=== PATIENT | male | born 1935 | race Caucasian/White ===

== ENCOUNTER 2017-09-27 19:15 | Emergency (ER) | payer MEDICARE, OTHER ==
[2017-09-27 19:38] LABS: #Basophils 0.1 thou/uL (0.0-0.2); #Eosinphils 0.1 thou/uL (0.0-0.7); #Lymphocytes 1.9 thou/uL (1.20-3.40); #Monocytes 0.6 thou/uL (0.11-0.59); #Neutrophils 4.3 thou/uL (1.40-6.50); %Basophils 1.2 % (0.0-1.0); %Eosinophils 1.1 % (0.0-10.0); %Lymphocytes 27.3 % (21.0-51.0); %Monocytes 8.7 % (0.0-10.0); %Neutrophils 61.7 % (42.0-75.0); Hemoglobin 17.5 g/dL (14.0-18.0); Mean Corpuscular HGB CONC 34.5 g/dL (32.0-36.0); Mean Corpuscular Hemoglobin 30.5 pg (27.0-31.0); Mean Corpuscular Volume 88.6 fl (80.0-94.0); Platelet Count 163 thou/uL (130-400); RBC Distribution Width 14.7 % (11.5-14.5); Red Blood Cell (RBC) Count 5.73 mill/uL (4.70-6.10)
[2017-09-27 19:55] LABS: ALT (SGPT) 23 U/L (8-55); AST (SGOT) 27 U/L (5-34); Albumin 4.1 g/dL (3.4-4.8); Alkaline Phosphatase 138 U/L (40-150); Anion Gap 19 mmol/L (10-20); BUN (Urea Nitrogen) 9 mg/dL (8.4-25.7); Bilirubin, Total 2.6 mg/dL (0.2-1.2); Calc. Creatinine Clearance 0 mL/min (70-130); Calcium 9.8 mg/dL (7.8-10.44); Carbon Dioxide 24 mmol/L (23-31); Chloride 103 mmol/L (98-107); Estimated GFR-MDRD 63; Globulin 3.4 g/dL (2.4-3.5); Glucose 193 mg/dL (83-110); Potassium 3.5 mmol/L (3.5-5.1); Protein, Total 7.5 g/dL (5.8-8.1); Sodium 142 mmol/L (136-145)
[2017-09-27 19:58] LABS: CKMB 3.3 ng/mL (0-6.6); Troponin I 0.085 ng/mL (< 0.028)
[2017-09-27] MEDS ORDERED: Furosemide 40 MG/4 ML VIAL ONE (20:03)
[2017-09-27] MEDS ORDERED: Nitroglycerin 2% Ointment 1 INCH/1 GM Packet ONE (20:03)
--- NOTE | 2017-09-27 20:28 | RAD ---
PORTABLE CHEST: 09/27/2017 COMPARISON: None. FINDINGS: The heart is mildly enlarged. There are no congestive changes or large pleural effusions. Faint joie cification is seen in the aortic arch. The trachea is midline. There is no lobar consolidation; however, there is some mild prominence of some of the basilar lung m arkings, right more than left. This may or may not be significant. IMPRESSION: Cardiomegaly and arteriosclerosis without congestive change. POS: HOME
[2017-09-27] MEDS ORDERED: Metoprolol Tartrate 5 MG/5 ML VIAL ONE (20:43)
[2017-09-27 21:07] LABS: Clarity Clear (Clear); Specific Gravity, Urine 1.015 (1.005-1.030)
[2017-09-27 21:08] LABS: Bilirubin Negative (Negative); Blood, Urine Negative (Negative); Glucose, Urine (Dipstick) Negative (Negative); Leukocyte Negative (Negative); Nitrite Negative (Negative); Protein, Urine (Dipstick) Negative (Neg-Trace)
== END 2017-09-27 21:17 | disposition home or self-care (01) ==
LOC: BURERS 19:15
DX: S29.011A Strain of muscle and tendon of front wall of thorax, initial encounter (principal); R79.89 Other specified abnormal findings of blood chemistry; I50.9 Heart failure, unspecified; E11.9 Type 2 diabetes mellitus without complications; J44.9 Chronic obstructive pulmonary disease, unspecified; X58.XXXA Exposure to other specified factors, initial encounter
CPT/HCPCS: 71045; 80053; 81003; 82553; 83605; 83880; 84484; 85025; 87040; 87086; 93005; 94760; 96374; 96375; J1940

== ENCOUNTER 2018-04-25 14:49 | Emergency (ER) | payer MEDICARE ==
[2018-04-25 15:44] LABS: #Basophils 0.2 thou/uL (0.0-0.2); #Eosinphils 0.8 thou/uL (0.0-0.7); #Lymphocytes 1.8 thou/uL (1.20-3.40); #Monocytes 1.3 thou/uL (0.11-0.59); #Neutrophils 9.4 thou/uL (1.40-6.50); %Basophils 1.1 % (0.0-1.0); %Eosinophils 6.1 % (0.0-10.0); %Lymphocytes 13.1 % (21.0-51.0); %Monocytes 9.8 % (0.0-10.0); Hemoglobin 13.8 g/dL (14.0-18.0); Mean Corpuscular HGB CONC 37.3 g/dL (32.0-36.0); Mean Corpuscular Hemoglobin 35.1 pg (27.0-31.0); Mean Corpuscular Volume 94.1 fL (78.0-98.0); Mean Platelet Volume 10.3 fL (7.4-10.4); Platelet Count 234 thou/uL (130-400); Prothrombin Time 13.1 SEC (12.0-14.7); RBC Distribution Width 11.5 % (11.5-14.5); Red Blood Cell (RBC) Count 3.95 mill/uL (4.70-6.10); White Blood Cell (WBC) Count 13.4 thou/uL (4.8-10.8)
[2018-04-25 15:45] LABS: PTT 28.4 SEC (22.9-36.1)
[2018-04-25 15:53] LABS: ALT (SGPT) 49 U/L (8-55); AST (SGOT) 47 U/L (5-34); Albumin 3.9 g/dL (3.4-4.8); Alkaline Phosphatase 89 U/L (40-150); Anion Gap 16 mmol/L (10-20); BUN (Urea Nitrogen) 47 mg/dL (8.4-25.7); Bilirubin, Total 0.6 mg/dL (0.2-1.2); CK (CPK) 1058 U/L (30-200); Calc. Creatinine Clearance 0 mL/min (70-130); Calcium 9.9 mg/dL (7.8-10.44); Carbon Dioxide 25 mmol/L (23-31); Chloride 98 mmol/L (98-107); Estimated GFR-MDRD 28; Globulin 3.3 g/dL (2.4-3.5); Glucose 186 mg/dL (83-110); MDiff Complete? YES; Manual Diff?? YES; Potassium 5.3 mmol/L (3.5-5.1); Protein, Total 7.2 g/dL (5.8-8.1); Sodium 134 mmol/L (136-145)
[2018-04-25 16:41] LABS: CKMB 19.1 ng/mL (0-6.6)
[2018-04-25 16:50] LABS: Bilirubin Negative (Negative); Blood, Urine Negative (Negative); Clarity Clear (Clear); Glucose, Urine (Dipstick) Negative (Negative); Leukocyte Negative (Negative); Nitrite Negative (Negative); Protein, Urine (Dipstick) Negative (Neg-Trace); Urobilinogen 0.2 mg/dL (0.2-1.0)
[2018-04-25] MEDS ORDERED: Enoxaparin Sodium 100 MG/ML SYRINGE ONE (17:44)
--- NOTE | 2018-04-25 19:42 | CT ---
CT OF THE BRAIN WITHOUT CONTRAST: 04/25/18 No prior scans were available for comparison. Some scalp laceration or hematoma was seen on the left side of the head. The underlying skull appears intact with no fracture. No intracranial bleeding or e xtra-axial hematoma was seen. Diffuse severe atrophy is present. The ventricles are normal in size fo r age and atrophy. There is evidence of a prior infarction of the right cerebellar hemisphere as well as some tiny lacunar infarcts in the head of the right caudate nucleus and the left subinsular regio n. IMPRESSION: Severe atrophy and chronic ischemic changes, including old strokes as mentioned. No acute intracrania l findings. POS: HOME
--- NOTE | 2018-04-25 20:48 | RAD ---
PORTABLE CHEST: 04/25/18 An AP portable film at 1718 is compared with a 09/27/17 study. The heart is minimally enlarged but unchanged in size. There is no sign of mediastinal widening or sh ift. The lungs are fully inflated and clear. No gross fractures were appreciated. IMPRESSION: No acute thoracic finding. POS: HOME
== END 2018-04-25 18:05 | disposition short-term general hospital (02) ==
LOC: BURERS 14:49
DX: S01.01XA Laceration without foreign body of scalp, initial encounter (principal); I95.9 Hypotension, unspecified; I21.4 Non-ST elevation (NSTEMI) myocardial infarction; I48.91 Unspecified atrial fibrillation; I25.10 Atherosclerotic heart disease of native coronary artery without angina pectoris; G47.30 Sleep apnea, unspecified; E11.9 Type 2 diabetes mellitus without complications; K21.9 Gastro-esophageal reflux disease without esophagitis; F32.9 Major depressive disorder, single episode, unspecified; E78.5 Hyperlipidemia, unspecified; Z86.73 Personal history of transient ischemic attack (TIA), and cerebral infarction without residual deficits; Z79.899 Other long term (current) drug therapy; Z79.82 Long term (current) use of aspirin; W17.89XA Other fall from one level to another, initial encounter
CPT/HCPCS: 36415; 70450; 71045; 80053; 81003; 82550; 82553; 83605; 84484; 85025; 85610; 85730; 87040; 93005; 96360; 96372; J1650

== ENCOUNTER 2018-06-28 10:57 | Emergency (ER) | payer MEDICARE ==
[2018-06-28 11:27] LABS: #Basophils 0.1 thou/uL (0.0-0.2); #Eosinphils 0.6 thou/uL (0.0-0.7); #Lymphocytes 2.6 thou/uL (1.20-3.40); #Monocytes 1.3 thou/uL (0.11-0.59); #Neutrophils 7.9 thou/uL (1.40-6.50); %Basophils 1.1 % (0.0-1.0); %Eosinophils 4.5 % (0.0-10.0); %Lymphocytes 20.5 % (21.0-51.0); %Monocytes 10.3 % (0.0-10.0); %Neutrophils 63.5 % (42.0-75.0); Hemoglobin 16.4 g/dL (14.0-18.0); Mean Corpuscular HGB CONC 35.4 g/dL (32.0-36.0); Mean Corpuscular Hemoglobin 33.8 pg (27.0-31.0); Mean Corpuscular Volume 95.5 fL (78.0-98.0); Mean Platelet Volume 11.1 fL (7.4-10.4); Platelet Count 186 thou/uL (130-400); RBC Distribution Width 11.6 % (11.5-14.5); Red Blood Cell (RBC) Count 4.84 mill/uL (4.70-6.10); White Blood Cell (WBC) Count 12.5 thou/uL (4.8-10.8)
[2018-06-28 11:42] LABS: ALT (SGPT) 76 U/L (8-55); AST (SGOT) 80 U/L (5-34); Albumin 4.4 g/dL (3.4-4.8); Alkaline Phosphatase 82 U/L (40-150); Anion Gap 16 mmol/L (10-20); BUN (Urea Nitrogen) 30 mg/dL (8.4-25.7); Bilirubin, Total 1.8 mg/dL (0.2-1.2); Calc. Creatinine Clearance 0 mL/min (70-130); Calcium 10.5 mg/dL (7.8-10.44); Carbon Dioxide 23 mmol/L (23-31); Chloride 98 mmol/L (98-107); Estimated GFR-MDRD 47; Globulin 3.4 g/dL (2.4-3.5); Glucose 122 mg/dL (83-110); Potassium 4.6 mmol/L (3.5-5.1); Protein, Total 7.8 g/dL (5.8-8.1); Sodium 132 mmol/L (136-145)
[2018-06-28 11:52] LABS: Bilirubin Negative (Negative); Blood, Urine Negative (Negative); Clarity Clear (Clear); Glucose, Urine (Dipstick) Negative (Negative); Leukocyte Negative (Negative); Nitrite Negative (Negative); Protein, Urine (Dipstick) Negative (Neg-Trace)
[2018-06-28] MEDS ORDERED: Aspirin Chewable 81 MG TAB ONE (12:04)
[2018-06-28 12:07] LABS: CKMB 26.6 ng/mL (0-6.6)
--- NOTE | 2018-06-28 17:16 | RAD ---
PORTABLE CHEST 06/28/18 An AP portable film at 1057 is compared with a 04/25/18 study. There has been no adverse interval change. The heart size is normal. There is no vascular congestion, edema, or pleural effusion. The lungs are clear. IMPRESSION: No acute thoracic finding. POS: HOME
--- NOTE | 2018-06-28 17:18 | CT ---
CT OF THE BRAIN 06/28/18 Comparison is made with the prior study of 04/25/18. Once again noted is encephalomalacia from a right cerebellar infarct. There is also evidence of prior infarcts in the left basal ganglia, subinsular region and a portion of the right frontal lobe. None of these findings are new. There are probably some infarcts involving the head of the caudate on the right as well. No bleeding, mass, edema, or acute stroke was found. The visible paranasal sinuses are clear. The ventricles are normal in size. IMPRESSION: Old strokes and chronic ischemic changes but no acute findings. POS: HOME
== END 2018-06-28 15:26 | disposition home or self-care (01) ==
LOC: BURERS 10:57
DX: R62.7 Adult failure to thrive (principal); I25.10 Atherosclerotic heart disease of native coronary artery without angina pectoris; I48.91 Unspecified atrial fibrillation; E11.9 Type 2 diabetes mellitus without complications; K21.9 Gastro-esophageal reflux disease without esophagitis; E78.5 Hyperlipidemia, unspecified; I10 Essential (primary) hypertension; F32.9 Major depressive disorder, single episode, unspecified; Z79.84 Long term (current) use of oral hypoglycemic drugs; Z79.899 Other long term (current) drug therapy; Z79.82 Long term (current) use of aspirin
CPT/HCPCS: 36416; 70450; 71045; 80053; 81003; 82553; 83605; 83880; 84484; 85025; 87804; 93005; 96360

== ENCOUNTER 2019-05-11 13:27 | Inpatient (IN) | payer MEDICARE ==
[2019-05-11 13:57] LABS: #Basophils 0.2 thou/uL (0.0-0.2); #Eosinphils 1.3 thou/uL (0.0-0.7); #Lymphocytes 1.5 thou/uL (1.20-3.40); #Monocytes 1.2 thou/uL (0.11-0.59); %Basophils 0.9 % (0.0-1.0); %Lymphocytes 9.6 % (21.0-51.0); %Monocytes 7.6 % (0.0-10.0); %Neutrophils 73.9 % (42.0-75.0); Mean Corpuscular Hemoglobin 33.6 pg (27.0-31.0); Mean Platelet Volume 10.7 fL (7.4-10.4); Platelet Count 233 thou/uL (130-400); RBC Distribution Width 12.8 % (11.5-14.5); Red Blood Cell (RBC) Count 4.45 mill/uL (4.70-6.10); White Blood Cell (WBC) Count 16.2 thou/uL (4.8-10.8)
[2019-05-11 14:10] LABS: ALT (SGPT) 125 U/L (8-55); AST (SGOT) 122 U/L (5-34); Alkaline Phosphatase 106 U/L (40-110); Anion Gap 18 mmol/L (10-20); BUN (Urea Nitrogen) 18 mg/dL (8.4-25.7); Bilirubin, Total 0.8 mg/dL (0.2-1.2); CK (CPK) 2771 U/L (30-200); Calc. Creatinine Clearance 0 mL/min (70-130); Calcium 9.6 mg/dL (7.8-10.44); Carbon Dioxide 29 mmol/L (23-31); Chloride 97 mmol/L (98-107); Estimated GFR-MDRD 87; Globulin 3.5 g/dL (2.4-3.5); Glucose 112 mg/dL (83-110); Potassium 3.8 mmol/L (3.5-5.1); Protein, Total 7.5 g/dL (5.8-8.1); Sodium 140 mmol/L (136-145)
[2019-05-11] MEDS ORDERED: Aspirin Chewable 81 MG TAB ONE (14:24)
--- NOTE | 2019-05-11 14:31 | CT ---
CT BRAIN WITHOUT CONTRAST: 05/11/2019 COMPARISON: Prior study of 06/28/2018. FINDINGS: No intracranial bleeding or extraaxial hematoma is seen. The ventricles are normal in size for age an d atrophy. Diffuse ischemic changes are present and chronic, including old lacunar infarcts bilateral ly. The skull appears intact and the visible paranasal sinuses are clear. IMPRESSION: Old ischemic changes but no acute intracranial findings. POS: HOME
[2019-05-11 14:36] LABS: CKMB 109.4 ng/mL (0-6.6)
[2019-05-11 15:12] LABS: Bilirubin Negative (Negative); Blood, Urine Moderate (Negative); Clarity Clear (Clear); Glucose, Urine (Dipstick) Negative (Negative); Leukocyte Negative (Negative); Nitrite Negative (Negative); Protein, Urine (Dipstick) Negative (Neg-Trace)
[2019-05-11 15:14] LABS: Bacteria/HPF None Seen HPF (None Seen); Squamous Epithelial 0-3 HPF (0-3); WBC/HPF None Seen HPF (0-3)
[2019-05-11] MEDS ORDERED: Ondansetron ODT 4 MG TAB PO PRN (16:27)
[2019-05-11] MEDS ORDERED: Acetaminophen 325 MG TAB PO PRN (16:27)
[2019-05-11] MEDS ORDERED: Ondansetron PF 4 MG/2 ML Vial SLOW IVP PRN (16:27)
[2019-05-11] MEDS ORDERED: HYDROcodone/Acetaminophen 5/325 mg Tablet PO PRN ×2 (16:27)
[2019-05-11 17:16] LABS: Lactic Acid 3.8 mmol/L (0.5-2.2)
[2019-05-11 17:21] VITALS: BMI 23.4
[2019-05-11 17:22] LABS: Lactic Acid 3.8 mmol/L (0.5-2.2)
--- NOTE | 2019-05-11 18:36 | RAD ---
LEFT HIP 2 VIEWS: Date: 05/11/2019 No fracture was seen. The bones appear intact and the joint space is normal in width. Arterial calcif ications are present. IMPRESSION: No acute findings. POS: HOME
--- NOTE | 2019-05-11 18:38 | RAD ---
PELVIS 1 VIEW: Date: 05/11/2019 No definite fracture was seen, however, the left hip is not seen adequately. Dedicated hip films are needed to exclude the possibility of fracture. The remainder of the bony pelvis showed no gross fract ure. The sensitivity of the exam is low. The symphysis shows no widening or offset and the SI joints show no widening. The right hip appears intact. IMPRESSION: No definite acute findings, but dedicated left hip films are required to rule out fracture. See study to follow. POS: HOME
[2019-05-11] MEDS ORDERED: Non-Formulary Item 1 EACH (Melatonin [Melatonin] 3 MG) PO SCH (21:00)
[2019-05-11] MEDS: Atorvastatin Calcium 40 MG TAB PO SCH (22:03)
[2019-05-11] MEDS: Melatonin 3 MG TAB PO SCH (22:04)
[2019-05-11] MEDS: Dextrose 5 %-0.45 % NaCl 1,000 ML IV SCH (23:18)
[2019-05-12 06:16] LABS: Lactic Acid 2.1 mmol/L (0.5-2.2)
[2019-05-12 06:23] LABS: Anion Gap 12 mmol/L (10-20)
[2019-05-12 06:30] LABS: ALT (SGPT) 91 U/L (8-55); AST (SGOT) 86 U/L (5-34); Albumin 3.1 g/dL (3.4-4.8); Alkaline Phosphatase 92 U/L (40-110); BUN (Urea Nitrogen) 16 mg/dL (8.4-25.7); Bilirubin, Total 0.6 mg/dL (0.2-1.2); CK (CPK) 1833 U/L (30-200); Calc. Creatinine Clearance 78 mL/min (70-130); Calcium 8.2 mg/dL (7.8-10.44); Carbon Dioxide 29 mmol/L (23-31); Chloride 104 mmol/L (98-107); Estimated GFR-MDRD Greater than 90; Globulin 2.5 g/dL (2.4-3.5); Glucose 100 mg/dL (83-110); Potassium 3.2 mmol/L (3.5-5.1); Protein, Total 5.6 g/dL (5.8-8.1); Sodium 142 mmol/L (136-145)
[2019-05-12] MEDS ORDERED: Potassium Chloride 20 MEQ TAB PO SCH (07:00)
[2019-05-12] MEDS: Aspirin 81 mg Enteric Coated Tablet PO SCH (07:58)
[2019-05-12] MEDS: Fish Oil 1,000 MG CAP PO SCH (07:58)
[2019-05-12] MEDS: Venlafaxine XR 37.5 MG CAP PO SCH (07:58)
[2019-05-12] MEDS: metFORMIN 500 MG TAB PO SCH (07:59)
[2019-05-12] MEDS: glipiZIDE 5 MG TAB PO SCH ×2 (07:59→17:22)
[2019-05-12] MEDS: Potassium Chloride 10 MEQ TAB PO SCH (07:59)
[2019-05-12] MEDS: Carvedilol 3.125 MG TAB PO SCH (07:59)
[2019-05-12] MEDS: Clopidogrel Bisulfate 75 MG TAB PO SCH (07:59)
[2019-05-12] MEDS: Lisinopril 5 MG TAB PO SCH (07:59)
[2019-05-12] MEDS: Dextrose 5 %-0.45 % NaCl 1,000 ML IV SCH ×3 (08:00→17:23)
[2019-05-12] MEDS: (Lutein [Lutein] 20 MG) PO SCH (08:03)
[2019-05-12] MEDS: Torsemide 20 MG TAB PO SCH (08:03)
[2019-05-12 08:04] LABS: Bilirubin Negative (Negative); Blood, Urine Negative (Negative); Clarity Clear (Clear); Glucose, Urine (Dipstick) Negative (Negative); Leukocyte Negative (Negative); Nitrite Negative (Negative); Protein, Urine (Dipstick) Negative (Neg-Trace)
[2019-05-12 08:14] LABS: Bacteria/HPF Rare-Few HPF (None Seen); RBC/HPF None Seen HPF (0-3); Squamous Epithelial 0-3 HPF (0-3); WBC/HPF 0-3 HPF (0-3)
[2019-05-12 08:36] LABS: CKMB 56.4 ng/mL (0-6.6)
[2019-05-12 08:54] LABS: #Basophils 0.2 thou/uL (0.0-0.2); #Eosinphils 1.4 thou/uL (0.0-0.7); #Lymphocytes 1.7 thou/uL (1.20-3.40); #Monocytes 1.5 thou/uL (0.11-0.59); #Neutrophils 7.4 thou/uL (1.40-6.50); %Basophils 1.3 % (0.0-1.0); %Eosinophils 11.8 % (0.0-10.0); %Lymphocytes 14.3 % (21.0-51.0); %Monocytes 12.1 % (0.0-10.0); %Neutrophils 60.6 % (42.0-75.0); Hemoglobin 11.8 g/dL (14.0-18.0); Mean Corpuscular HGB CONC 34.3 g/dL (32.0-36.0); Mean Corpuscular Hemoglobin 34.7 pg (27.0-31.0); Mean Platelet Volume 11.5 fL (7.4-10.4); Platelet Count 192 thou/uL (130-400); RBC Distribution Width 12.7 % (11.5-14.5); Red Blood Cell (RBC) Count 3.39 mill/uL (4.70-6.10); White Blood Cell (WBC) Count 12.2 thou/uL (4.8-10.8)
[2019-05-12 09:00] LABS: MDiff Complete? YES; Macrocytosis SLIGHT = 6-15 cells (100X) (0-5/hpf); Platelet Morphology Comment Appears Adequate
[2019-05-12] MEDS ORDERED: FLU VACC TS2019-20(65YR UP)/PF 180 MCG/0.5 ML SYRINGE IM ONE (09:00)
[2019-05-12] MEDS ORDERED: Fish Oil 1,000 MG CAP PO SCH (09:00)
[2019-05-12] MEDS ORDERED: Non-Formulary Item 1 EACH (Omeprazole [Omeprazole] 20 MG) PO SCH (09:00)
[2019-05-12] MEDS ORDERED: Prevnar 13-Val Conj/PF 0.5 ML SYRINGE IM ONE (09:00)
--- NOTE | 2019-05-12 14:16 | HP ---
CHIEF COMPLAINT: Fall. HISTORY OF PRESENT ILLNESS: This 83-year-old male, patient of Dr. Johnson, who typically lives alone with some daytime care provided by a consulted medical service presented to the [facility] emergency department yesterday after being found down for an undisclosed amount of time. The patient overall is somewhat of a poor historian. He had initially complained of pain to the right occipital area and sacrum and was noted to have contusions to these areas, therefore an xray was obtained of the patient's left hip and pelvis, and a brain CT as well with all of these being reassuring. The patient's lab work revealed him to hemoconcentrated with evidence of rhabdomyolysis, although his renal function is not compromised. Of concern the patient had a markedly elevated CK-MB of greater then 109 and troponin level elevated as well at 0.182. He was started on intravenous fluids while in the emergency department and his medical power of traffic law attorney, who is his daughter, was contacted by the ER physician. They had a lengthy discussion regarding the patient's condition and she has informed that he is status DNAR with her wish to have no heroic measures pursued along with plan to transition the patient to a nursing care facility when able. Yesterday evening, the patient's vital signs changed as he became hypotensive and tachycardic and daughter of the patient was notified of his status change. She did advise that he had similar episodes to this previously and again reiterated the desire to pursue no heroic measures along with no plan of transportation to a higher level of care regarding his cardiovascular status. In review of the patient, this morning, he denies having any significant chest pain or shortness of breath; his only complaint of pain is in regard to his low back which is chronic and at baseline per the patient. He appears to have only fair insight at best in regard to his current condition. PAST MEDICAL HISTORY: Includes coronary artery disease, cardiomyopathy, paroxysmal atrial fibrillation, type 2 diabetes mellitus, gastroesophageal reflux disease, hyperlipidemia, and hypertension. PAST SURGICAL HISTORY: Includes lumbar back procedure, right knee procedure, prostatectomy, carotid endarterectomy. SOCIAL HISTORY: The patient lives at home alone. Denies ETOH, smoking or illicit drug use. ALLERGIES: IODINE. FAMILY HISTORY: Noncontributory. CURRENT MEDICATIONS: Include 1. Melatonin 3 mg at bedtime. 2. Lisinopril 5 mg daily. 3. Fish oil 1000 mg daily. 4. Omeprazole 20 mg daily. 5. Potassium chloride 10 mEq daily. 6. Metformin 500 mg daily. 7. Effexor XR 75 mg daily. 8. Torsemide 100 mg daily. 9. Lutein 20 mg daily. 10. Glipizide 5 mg b.i.d. 11. Plavix 75 mg daily. 12. Carvedilol 3.125 mg daily. 13. Atorvastatin 80 mg at bedtime. 14. Aspirin 81 mg daily. REVIEW OF SYSTEMS: GENERAL: The patient denies fever, chills or diaphoresis. EARS, NOSE, AND THROAT: Denies sore throat, nasal drainage, or congestion. CARDIOVASCULAR: Denies chest pain or palpitations. RESPIRATORY: Denies shortness of breath or cough. GASTRO: Denies abdominal pain, nausea, vomiting, diarrhea, or constipation. GENITOURINARY: Denies dysuria. MUSCULOSKELETAL: Denies joint swelling. DERM: Denies rash. NEURO: Denies headache. LABORATORY DATA: Current CBC is pending. Initial CBC showed a white blood cell count of 16.2, hemoglobin 16.0, hematocrit 45.3, platelets 233. Current sodium is 142, potassium 3.2, BUN is 16, creatinine is 0.68 with a GFR greater than 90, glucose is 100, calcium 8.2. AST has trended down from 122 to 86 and ALT from 125 to 91, alk phose is 92. Initial CK 2771 followup this morning is 1833. Troponin has trended up yesterday from 0.182 to 0.194. Yesterday CK-MB was elevated at 109.4 , today is pending. BNP is 336. Urinalysis showed moderate blood, positive urobilinogen, negative for leukocyte esterase and nitrite. IMAGIN05/11/2019, brain CT shows old ischemic changes but no acute intracranial findings. 05/11/2019, pelvis x-ray, no definite acute finding but dedicated left hip films are required to rule out fracture. 05/11/2019, left hip x-ray shows no acute findings. PHYSICAL EXAMINATION: VITAL SIGNS: Temperature is 98.0, pulse is 110, respiratory rate 20, oxygen 99 % on room air, blood pressure is 88/65. GENERAL: The patient is alert and oriented to self and place but not time, in no acute distress. He is to have generalized weakness. HEAD, EYES, EARS, NOSE AND THROAT: Normocephalic. There are small contusions to the right occiput. He has dry mucous membranes. Extraocular muscles are intact bilaterally. He had poor dentition. NECK: Supple without lymphadenopathy. CARDIOVASCULAR: Sinus tachycardia. Normal S1 and S2. There is 2/6 murmur. RESPIRATORY: Clear to auscultation bilaterally without wheezes, rales, or rhonchi. EXTREMITIES: No clubbing, cyanosis, or edema. He does have thickened and discolored toe nails. He has a peripheral IV to the right upper extremity. SKIN: Hematoma to the sacrum with mild area of soft tissue swelling at the right occiput. NEUROLOGIC: Nonfocal with cranial nerves 2 through 12 grossly intact. ASSESSMENT AND PLAN: 1. Rhabdomyolysis: We will continue the patient's gentle hydration secondary to history of cardiomyopathy. His CK level is trending down thus far and labs show normal renal function. We will replete his potassium today and followup labs tomorrow. 2. Acute coronary syndrome: The patient's medical power traffic law attorney is his daughter who would like to have the patient remain here and forgo higher level of care at a separate facility which may include consultation by Cardiology. We will resume his Plavix and aspirin dosing as scheduled. I suspect that this may be related to demand ischemia secondary to patient's dehydrated state, however, this cannot be confirmed. 3. Head contusion, status post fall. The patient is not fully oriented and appears to be near his baseline from what I gather. 4. Cardiomyopathy: The patient's BNP is not significantly elevated. We will resume his typical diuretic medications while supplying some gentle IV hydration. 5. Type 2 diabetes mellitus: We will resume the patient's oral diabetic medications with a.c. and nightly glucose checks. 6. Hypertension: The patient is currently hypotensive; may hold his lisinopril as needed, although he is only on a 5 mg dose. He is currently tachycardic, although shows to be in a sinus rhythm, and daughter reports the patient to have episodic issues of this, again she has advised against pursuing any heroic measures or referral to see Cardiology. 7. Dyslipidemia: We will resume the patient's statin. 8. Gastroesophageal reflux disease: We will resume the patient's proton pump inhibitor. DISPOSITION: We will pursue a Social Service consult for the patient to plan to transition to intermediate facility by request of the patient's medical power of traffic law attorney, his daughter. CODE STATUS: DNAR. Job ID: [id number] MTDD
[2019-05-12] MEDS: Atorvastatin Calcium 40 MG TAB PO SCH (21:30)
[2019-05-12] MEDS: Melatonin 3 MG TAB PO SCH (21:30)
[2019-05-13] MEDS: Dextrose 5 %-0.45 % NaCl 1,000 ML IV SCH ×3 (02:08→20:15)
[2019-05-13 06:57] LABS: ALT (SGPT) 90 U/L (8-55); AST (SGOT) 78 U/L (5-34); Albumin 3.2 g/dL (3.4-4.8); Alkaline Phosphatase 78 U/L (40-110); Anion Gap 14 mmol/L (10-20); BUN (Urea Nitrogen) 13 mg/dL (8.4-25.7); Bilirubin, Total 0.7 mg/dL (0.2-1.2); CK (CPK) 1577 U/L (30-200); Calc. Creatinine Clearance 74 mL/min (70-130); Calcium 8.6 mg/dL (7.8-10.44); Carbon Dioxide 30 mmol/L (23-31); Chloride 101 mmol/L (98-107); Estimated GFR-MDRD Greater than 90; Globulin 2.7 g/dL (2.4-3.5); Glucose 136 mg/dL (83-110); Potassium 3.8 mmol/L (3.5-5.1); Protein, Total 5.9 g/dL (5.8-8.1); Sodium 141 mmol/L (136-145)
[2019-05-13 07:25] LABS: CKMB 44.8 ng/mL (0-6.6)
[2019-05-13] MEDS: Torsemide 20 MG TAB PO SCH (08:11)
[2019-05-13] MEDS: Venlafaxine XR 37.5 MG CAP PO SCH (08:11)
[2019-05-13] MEDS: metFORMIN 500 MG TAB PO SCH (08:11)
[2019-05-13] MEDS: Carvedilol 3.125 MG TAB PO SCH (08:12)
[2019-05-13] MEDS: Lisinopril 5 MG TAB PO SCH (08:12)
[2019-05-13] MEDS: Potassium Chloride 10 MEQ TAB PO SCH (08:12)
[2019-05-13] MEDS: Fish Oil 1,000 MG CAP PO SCH (08:12)
[2019-05-13] MEDS: Aspirin 81 mg Enteric Coated Tablet PO SCH (08:12)
[2019-05-13] MEDS: glipiZIDE 5 MG TAB PO SCH ×2 (08:12→17:21)
[2019-05-13] MEDS: Clopidogrel Bisulfate 75 MG TAB PO SCH (08:12)
[2019-05-13] MEDS: (Lutein [Lutein] 20 MG) PO SCH (08:23)
[2019-05-13 08:24] LABS: #Basophils 0.2 thou/uL (0.0-0.2); #Eosinphils 1.2 thou/uL (0.0-0.7); #Lymphocytes 1.6 thou/uL (1.20-3.40); #Monocytes 1.4 thou/uL (0.11-0.59); #Neutrophils 7.8 thou/uL (1.40-6.50); %Basophils 1.3 % (0.0-1.0); %Eosinophils 10.1 % (0.0-10.0); %Lymphocytes 12.9 % (21.0-51.0); %Monocytes 11.3 % (0.0-10.0); %Neutrophils 64.4 % (42.0-75.0); Hemoglobin 12.3 g/dL (14.0-18.0); MDiff Complete? YES; Macrocytosis SLIGHT = 6-15 cells (100X) (0-5/hpf); Mean Corpuscular HGB CONC 32.6 g/dL (32.0-36.0); Mean Corpuscular Hemoglobin 33.1 pg (27.0-31.0); Mean Platelet Volume 12.1 fL (7.4-10.4); Platelet Count 191 thou/uL (130-400); Platelet Morphology Comment Appears Adequate; RBC Distribution Width 12.7 % (11.5-14.5); Red Blood Cell (RBC) Count 3.72 mill/uL (4.70-6.10); White Blood Cell (WBC) Count 12.1 thou/uL (4.8-10.8)
[2019-05-13 11:11] LABS: Burr Cells SLIGHT = 2-5 cells (100X) (0-1/hpf); Poikilocytosis SLIGHT = 6-15 cells (100X) (0-5/hpf)
[2019-05-13] MEDS: Melatonin 3 MG TAB PO SCH (20:17)
[2019-05-13] MEDS: Atorvastatin Calcium 40 MG TAB PO SCH (20:18)
[2019-05-14] MEDS: Dextrose 5 %-0.45 % NaCl 1,000 ML IV SCH (04:19)
[2019-05-14 06:16] VITALS: TEMP 97.7
[2019-05-14 06:19] LABS: #Basophils 0.2 thou/uL (0.0-0.2); #Eosinphils 1.5 thou/uL (0.0-0.7); #Lymphocytes 1.5 thou/uL (1.20-3.40); #Monocytes 1.4 thou/uL (0.11-0.59); #Neutrophils 7.2 thou/uL (1.40-6.50); %Basophils 1.6 % (0.0-1.0); %Eosinophils 12.7 % (0.0-10.0); %Lymphocytes 12.7 % (21.0-51.0); %Monocytes 12.1 % (0.0-10.0); Hemoglobin 12.7 g/dL (14.0-18.0); Mean Corpuscular HGB CONC 33.4 g/dL (32.0-36.0); Mean Corpuscular Hemoglobin 33.7 pg (27.0-31.0); Mean Platelet Volume 12.4 fL (7.4-10.4); Platelet Count 198 thou/uL (130-400); RBC Distribution Width 12.5 % (11.5-14.5); Red Blood Cell (RBC) Count 3.77 mill/uL (4.70-6.10); White Blood Cell (WBC) Count 11.8 thou/uL (4.8-10.8)
[2019-05-14 06:25] LABS: ALT (SGPT) 87 U/L (8-55); AST (SGOT) 70 U/L (5-34); Albumin 3.3 g/dL (3.4-4.8); Alkaline Phosphatase 76 U/L (40-110); Anion Gap 14 mmol/L (10-20); BUN (Urea Nitrogen) 17 mg/dL (8.4-25.7); Bilirubin, Total 0.9 mg/dL (0.2-1.2); CK (CPK) 1327 U/L (30-200); Calc. Creatinine Clearance 68 mL/min (70-130); Calcium 8.7 mg/dL (7.8-10.44); Carbon Dioxide 30 mmol/L (23-31); Chloride 99 mmol/L (98-107); Estimated GFR-MDRD Greater than 90; Globulin 2.7 g/dL (2.4-3.5); Glucose 139 mg/dL (83-110); Potassium 3.4 mmol/L (3.5-5.1); Sodium 140 mmol/L (136-145)
[2019-05-14] MEDS ORDERED: Potassium Chloride 20 MEQ TAB PO SCH (08:00)
[2019-05-14] MEDS: Torsemide 20 MG TAB PO SCH (09:24)
[2019-05-14] MEDS: Carvedilol 3.125 MG TAB PO SCH (09:25)
[2019-05-14] MEDS: Venlafaxine XR 37.5 MG CAP PO SCH (09:25)
[2019-05-14] MEDS: Clopidogrel Bisulfate 75 MG TAB PO SCH (09:26)
[2019-05-14] MEDS: glipiZIDE 5 MG TAB PO SCH (09:26)
[2019-05-14] MEDS: Fish Oil 1,000 MG CAP PO SCH (09:26)
[2019-05-14] MEDS: Lisinopril 5 MG TAB PO SCH (09:26)
[2019-05-14] MEDS: metFORMIN 500 MG TAB PO SCH (09:26)
[2019-05-14 09:27] VITALS: BP 118/60
[2019-05-14] MEDS: Aspirin 81 mg Enteric Coated Tablet PO SCH (09:27)
--- NOTE | 2019-05-14 14:31 | DIS ---
DATE OF ADMISSION: 05/11/2019 DATE OF DISCHARGE: 05/14/2019 ADMISSION DIAGNOSES: Rhabdomyolysis, acute coronary syndrome, head contusion status post fall, history of cardiomyopathy, type 2 diabetes mellitus, hypertension, dyslipidemia, and memory impairment. PROCEDURES: 05/11/2019, brain CT showed old ischemic changes, but no acute intracranial findings. 05/11/2019, pelvis x-ray showed no definite acute finding, but dedicated left hip films are required to rule out fracture. 05/11/2019, left hip x-ray showed no acute findings. HOSPITAL COURSE: This is an 83-year-old male, patient of Dr. Johnson, who has some underlying memory impairment and lives alone, who was subsequently found down at home for an undisclosed amount of time. Workup in the emergency department revealed a markedly elevated CK level and dehydration with evidence of rhabdomyolysis. In addition to this, the patient's cardiac enzymes were elevated as well. He was started on intravenous fluids and the patient's daughter who is his medical power of regulatory attorney was contacted. She advised against any heroic measures as the patient status is DNAR, and declined for the patient to transition to a higher level facility for potential cardiac consultation. The patient was admitted to the floor and started on IV hydration and resumption of his usual medications. Secondary to the patient's underlying history of cardiomyopathy, his IV hydration was administered at a modest rate. His labs were trended during his stay and his CK level did trend down appropriately. The patient's renal function remained normal throughout his stay. Secondary to the patient's inability to properly care for himself at home and after discussion with the patient's medical power of regulatory attorney, his daughter, it was decided to transition him to [facility] for long-term care. While there, he may be able to participate with physical therapy and occupational therapy with further skilled care. The patient's labs have improved , his hydration status has normalized, and he is appropriate for discharge at this time. DISPOSITION: The patient will discharge to [facility]. DISCHARGE MEDICATION: 1. Tylenol 650 mg p.r.n. 2. Aspirin 81 mg daily. 3. Atorvastatin 80 mg at bedtime. 4. Carvedilol 3.125 mg daily. 5. Plavix 75 mg daily. 6. Fish oil 1000 mg daily. 7. Glipizide 5 mg b.i.d. 8. Lisinopril 5 mg daily. 9. Melatonin 3 mg at bedtime. 10. Metformin 500 mg daily. 11. Potassium chloride 20 mEq daily. 12. Venlafaxine 75 mg daily. 13. Torsemide 100 mg daily. 14. Omeprazole 20 mg daily. Job ID: [id number] MTDD
--- NOTE | 2019-05-16 04:30 | PQF ---
[employer] Crystal Reports Winform ViewerDOONAN STVEE RODRIGUES EJTHRO GOMEZ [id number] CLINICAL DOCUMENTATION CLARIFICATION FORM: POST DISCHARGE Addendum to original discharge summary date: 05/14/19 Late entry note date: 05/16/19 DATE: 05/16/2019 ATTN:JETHRO GOMEZ Please exercise your independent, professional judgment in responding to the clarification form. Clinical indicators are provided on the bottom of this form for your review Please check appropriate box(s): [ ] Rhabdomyolysis was traumatic [ x] Rhabdomyolysis was not traumatic [ ] Other diagnosis [ ] Unable to determine In addition, please specify: Present on Admission (POA): [x ] Yes [ ] No [ ] Unable to determine For continuity of documentation, please document condition throughout progress notes and discharge summary. Thank You. CLINICAL INDICATORS - SIGNS / SYMPTOMS / LABS Rhabdomyolysis - Documented in H&P on 05/11 by JETHRO GOMEZ his CK level is trending down thus far and lab show normal renal function - Documented in H&P on 05/11 by JETHRO GOMEZ head contusion status post fall- Documented in H&P on 05/11 by JETHRO GOMEZ Elevated CK level and dehydration with evidence of rhabdomyolysis - Documented in DS on 05/14 by JETHRO GOMEZ Found down at home an undisclosed amount of time - Documented in DS on 05/14 by JETHRO GOMEZ CK level 109.4 on 05/11 and 44.8 on 05/13 - Documented in Laboratory RISK FACTORS DM Cardiomyopathy HTN TREATMENTS: Will continue patient gently hydration - JETHRO GOMEZ we will repeat his potassium today & followup labs tomorrow - Documented in H&P on 05/11 by JETHRO GOMEZ [employer] Crystal Reports Winform Viewer(This form is maintained as a part of the permanent medical record) 2014 [employer] All Rights Reserved [email or web address] [not provided] MTDD
--- NOTE | 2019-05-17 00:37 | PQF ---
[employer] Crystal Reports Winform ViewerDOONAN STEVE JETHRO COX [id number] CLINICAL DOCUMENTATION CLARIFICATION FORM: POST DISCHARGE Addendum to original discharge summary date: 05/14/2019 Late entry note date: 05/19/2019 DATE: ATTN:JETHRO GOMEZ Please exercise your independent, professional judgment in responding to the clarification form. Clinical indicators are provided on the bottom of this form for your review Please check appropriate box(s): AMI TYPE: [ ] Acute Coronary Syndrome (ACS) without Acute AL meaning Unstable Angina [ ] NSTEMI (AL type I) [ ] NSTEMI due to Demand Ischemia (AMI Type II) [ x ] Demand Ischemia without AL [ ] STEMI (please also specify site and arterysee below) If STEMI, SITE:[ ] Anterior [ ] Apical [ ] Lateral [ ] Inferior [ ] Posterior [ ] Q Wave [ ] Septal [ ] Unable to Determine SPECIFIC ARTERY (Based on site) [ ] Left Main Coronary[ ] Diagonal [ ] Left Anterior Descending[ ] Oblique Marginal [ ] Right Coronary Artery[x ] Unable to Determine [ ] Left Circumflex ONSET OF INFARCTION: [ ] Onset Less than 4 weeks of admission [ ] Onset Greater than 4 weeks of admission [ x ] Unable to determine DUE TO (if applicable): [ ] Stent occlusion [ ] In-Stent stenosis [ ] Occlusion of coronary bypass graft [ ] Complication of PCI [ ] Underlying CAD [ ] Other [ ] Other diagnosis [ x ] Unable to determine In addition, please specify: Present on Admission (POA): [x ] Yes [ ] No [ ] Unable to determine CLINICAL INDICATORS - SIGNS / SYMPTOMS / LABS Troponin level elevated as well at 0.182 -Documented in H&P on 05/12 by JETHRO GOMEZ Acute coronary syndrome I suspect that this may be related to demand ischemia 2/ 2 paten's dehydrated state however this cannot be confirmed - Documented in H&P on 05/12 by JETHRO GOMEZ Troponin level 0.182 on 05/11, 0.194 on 05/12 and 0.207 on 05/13 - Documented in Laboratory report RISKS: Cardiomyopathy - Documented in H&P on 05/12 by JETHRO GOMEZ DM type 2 -Documented in H&P on 05/12 by JETHRO GOMEZ Acute coronary syndrome -Documented in H&P on 05/12 by JETHRO GOMEZ TREATMENTS: We will resume his Plavix and Aspirin dosing as scheduled - -Documented in H&P on 05/12 by JETHRO GOMEZ (This form is maintained as a part of the permanent medical record) 2014 [employer] All Rights Reserved [email or web address] [not provided] MTDD
== END 2019-05-14 14:10 | DRG 558 ==
LOC: BURERS 13:27 → BURMED 15:36 → UNDOADMIN 15:36
PROVIDERS: ADMIT Family Medicine; ATTEND Family Medicine
DX: M62.82 Rhabdomyolysis (principal); I24.9 Acute ischemic heart disease, unspecified; I42.9 Cardiomyopathy, unspecified; I24.8 Other forms of acute ischemic heart disease; Z66 Do not resuscitate; I25.10 Atherosclerotic heart disease of native coronary artery without angina pectoris; I48.0 Paroxysmal atrial fibrillation; E11.9 Type 2 diabetes mellitus without complications; K21.9 Gastro-esophageal reflux disease without esophagitis; E78.5 Hyperlipidemia, unspecified; I10 Essential (primary) hypertension; S00.93XA Contusion of unspecified part of head, initial encounter; W18.30XA Fall on same level, unspecified, initial encounter; E86.0 Dehydration; Z98.890 Other specified postprocedural states; Z91.041 Radiographic dye allergy status; Z79.84 Long term (current) use of oral hypoglycemic drugs; Z79.02 Long term (current) use of antithrombotics/antiplatelets; Z79.82 Long term (current) use of aspirin; R40.2142 Coma scale, eyes open, spontaneous, at arrival to emergency department; R40.2252 Coma scale, best verbal response, oriented, at arrival to emergency department; R40.2362 Coma scale, best motor response, obeys commands, at arrival to emergency department
CPT/HCPCS: 36415; 36416; 70450; 72170; 80053; 81001; 81003; 81015; 82550; 82553; 82607; 82746; 83605; 83880; 84484; 85025; 87086; 90471; 90662; 96360; 96361; A4353; G0008